=== PATIENT | male | born 1960 | race Caucasian/White ===

== ENCOUNTER 2016-09-28 13:56 | Emergency (ER) | payer MEDICARE ==
[~2016-09-28] VITALS: Ht 177.8 cm; Wt 95.0 kg
[2016-09-28 14:06] VITALS: BP 115/75; PULSE 80; RESP 20; O2SAT 98
[2016-09-28] MEDS ORDERED: SODIUM CHLOR 0.9% 1000 ML INJ 1,000 ML IV SCH (14:13)
--- NOTE | 2016-09-28 14:13 | PD ---
HPI Chief Complaint: Abdominal Pain Time Seen by Provider: 14:08 Travel History International Travel<30 days: No Contact w/Intl Traveler<30days: No Traveled to known affect area: No History of Present Illness HPI 55 year old male brought in by ambulance with sudden onset epigastric pain, nausea, vomiting since this morning. Patient reports a history of bilateral flank pain over the past several weeks which she was going to see his doctor for. He states he may have eaten some bad salmon 2 days ago which he feels may be causing some of his symptoms. Patient is a drinker daily and states he had about a cup and a half of liquor last evening. Patient woke up this morning with severe epigastric tenderness with pain through his back and into his chest. He describes his pain as a burning achy pain. Currently his pain is 10 out of 10. Patient denies urinary symptoms or diarrhea or constipation. He denies shortness of breath. Patient received 4 mg Zofran IV and a bolus which improved his nausea and vomiting. Twelve-lead in the ambulance showed several flipped T waves in the anterior leads. Patient is allergic to tramadol. PFSH Past Medical History Arthritis: Yes (L hip - genetic) Heart Rhythm Problems: No Cancer: Yes (BCC; ALSO "PRE-CANCER POLYPS -COLONOSCOPY") Cardiovascular Problems: Yes (Irregular rate) High Cholesterol: No Chest Pain: No Congestive Heart Failure: No Cerebrovascular Accident: No Diabetes: No Diminished Hearing: Yes (BILATERAL) Diverticulitis: Yes Endocrine: No Gastrointestinal Disorders: Yes (Diverticulosis / Spastic Colon) Genitourinary: No Hepatitis: No Hiatal Hernia: No Immune Disorder: No Musculoskeletal: No Neurologic: No Psychiatric: No Reproductive: No Respiratory: Yes (SLEEP APNEA CPAP) Immunizations Current: Yes Migraines: No Seizures: No Sleep Apnea: Yes (sleep apnea / narcolepsy) Thyroid Disease: No Past Surgical History Abdominal Surgery: No AICD: No Body Medical Devices: L HIP Cardiac Surgery: No Ear Surgery: No Endocrine Surgery: No Eye Surgery: No Genitourinary Surgery: No Gynecologic Surgery: No Joint Replacement: Yes (L HIP) Oral Surgery: Yes (tooth extraction) Pacemaker: No Thoracic Surgery: No Other Surgery: Yes ([facility] GLAND) Social History Alcohol Use: Yes (3-4 drinks per week) Tobacco Use: No Substance Use: No Allergies-Medications (Allergen,Severity, Reaction): Coded Allergies: Tramadol (Verified Adverse Reaction, Intermediate, Psychosis, 07/03/14) Reported Meds & Prescriptions Reported Meds & Active Scripts Active Omeprazole 40 Mg Cap 40 Mg PO DAILY Carafate (Sucralfate) 1 Gm Tab 1 Gm PO QID 14 Days On empty stomach Review of Systems Except as stated in HPI: all other systems reviewed are Neg General / Constitutional: No: Fever, Chills Eyes: No: Visual changes HENT: No: Headaches Cardiovascular: Positive: Chest Pain or Discomfort Respiratory: No: Shortness of Breath Gastrointestinal: Positive: Nausea, Vomiting, Abdominal Pain, Indigestion, Dysphagia, Loss of Appetite, No: Diarrhea, Changes in Bowel Habits Genitourinary: No: Urgency, Frequency, Dysuria Musculoskeletal: No: Pain Skin: No Rash Neurologic: No: Weakness Psychiatric: No: Depression Endocrine: No: Polydipsia Hematologic/Lymphatic: No: Easy Bruising Physical Exam Narrative GENERAL: Patient appears in moderate distress. He is writhing around with discomfort. SKIN: Warm and dry. Color. Normal turgor. Mild diaphoresis. HEAD: Atraumatic. Normocephalic. EYES: Pupils equal and round. No scleral icterus. No injection or drainage. ENT: No nasal bleeding or discharge. Mucous membranes pink and moist. Pharynx is clear. Airway is patent. NECK: Trachea midline. Supple nontender. CARDIOVASCULAR: Regular rate and rhythm. RESPIRATORY: No accessory muscle use. Clear to auscultation. Breath sounds equal bilaterally. GASTROINTESTINAL: Abdomen soft, moderate to severe epigastric tenderness, nondistended. No CVA tenderness. Bowel sounds present in all quadrants. Hepatic and splenic margins not palpable. MUSCULOSKELETAL: Extremities without clubbing, cyanosis, or edema. No obvious deformities. NEUROLOGICAL: Awake and alert. No obvious cranial nerve deficits. Motor grossly within normal limits. Five out of 5 muscle strength in the arms and legs. Normal speech. PSYCHIATRIC: Appropriate mood and affect; insight and judgment normal. Data Data Last Documented VS Vital Signs Date Time Temp Pulse Resp B/P Pulse Ox O2 Delivery O2 Flow Rate FiO2 09/28/16 14:41 99 09/28/16 14:06 80 20 115/75 Orders Complete Blood Count With Diff (09/28/16 14:13) Comprehensive Metabolic Panel (09/28/16 14:13) Lipase (09/28/16 14:13) Lactic Acid (09/28/16 14:13) Prothrombin Time / Inr (Pt) (09/28/16 14:13) Act Partial Throm Time (Ptt) (09/28/16 14:13) Urinalysis - C+S If Indicated (09/28/16 14:13) Ct Abd/Pel W Iv Contrast(Rout) (09/28/16 14:13) Iv Access Insert/Monitor (09/28/16 14:13) Ecg Monitoring (09/28/16 14:13) Oximetry (09/28/16 14:13) Morphine Inj (Morphine Inj) (09/28/16 14:15) Ondansetron Inj (Zofran Inj) (09/28/16 14:15) Pantoprazole Inj (Protonix Inj) (09/28/16 14:15) Sodium Chlor 0.9% 1000 Ml Inj (Ns 1000 M (09/28/16 14:13) Sodium Chloride 0.9% Flush (Ns Flush) (09/28/16 14:15) Electrocardiogram (09/28/16 14:13) Chest, Single Ap (09/28/16 14:13) Al-Mag Hy-Si 40-40-4 Mg/Ml Liq (Mag-Al P (09/28/16 14:15) Lidocaine 2% Viscous (Xylocaine 2% Visco (09/28/16 14:15) Ckmb (Isoenzyme) Profile (09/28/16 14:13) Troponin I (09/28/16 14:13) Aspirin Chew (Aspirin Chew) (09/28/16 14:15) CKMB (09/28/16 14:20) CKMB% (09/28/16 14:20) Iohexol 350 Inj (Omnipaque 350 Inj) (09/28/16 15:15) Labs Laboratory Tests Test 09/28/16 09/28/16 14:20 14:27 White Blood Count 11.1 TH/MM3 Red Blood Count 5.54 MIL/MM3 Hemoglobin 17.0 GM/DL Hematocrit 49.6 % Mean Corpuscular Volume 89.5 FL Mean Corpuscular Hemoglobin 30.6 PG Mean Corpuscular Hemoglobin 34.2 % Concent Red Cell Distribution Width 13.6 % Platelet Count 233 TH/MM3 Mean Platelet Volume 8.3 FL Neutrophils (%) (Auto) 80.1 % Lymphocytes (%) (Auto) 15.0 % Monocytes (%) (Auto) 4.2 % Eosinophils (%) (Auto) 0.4 % Basophils (%) (Auto) 0.3 % Neutrophils # (Auto) 8.9 TH/MM3 Lymphocytes # (Auto) 1.7 TH/MM3 Monocytes # (Auto) 0.5 TH/MM3 Eosinophils # (Auto) 0.0 TH/MM3 Basophils # (Auto) 0.0 TH/MM3 CBC Comment DIFF FINAL Differential Comment Prothrombin Time 10.0 SEC Prothromb Time International 0.9 RATIO Ratio Activated Partial 25.5 SEC Thromboplast Time Sodium Level 139 MEQ/L Potassium Level 3.8 MEQ/L Chloride Level 105 MEQ/L Carbon Dioxide Level 25.8 MEQ/L Anion Gap 8 MEQ/L Blood Urea Nitrogen 22 MG/DL Creatinine 1.20 MG/DL Estimat Glomerular Filtration 63 ML/MIN Rate Random Glucose 105 MG/DL Calcium Level 9.0 MG/DL Total Bilirubin 0.6 MG/DL Aspartate Amino Transf 25 U/L (AST/SGOT) Alanine Aminotransferase 53 U/L (ALT/SGPT) Alkaline Phosphatase 71 U/L Total Creatine Kinase 155 U/L Creatine Kinase MB 5.1 NG/ML Troponin I 0.03 NG/ML Total Protein 7.6 GM/DL Albumin 3.9 GM/DL Lipase 284 U/L Lactic Acid Level 1.7 mmol/L MDM Medical Decision Making Medical Screen Exam Complete: Yes Emergency Medical Condition: Yes Medical Record Reviewed: Yes Differential Diagnosis Gastritis. Esophagitis. Pancreatitis. Gallbladder disease. Cardiac syndrome. Narrative Course Patient is uncomfortable but appears medically stable at time of exam. EKG is performed. This shows sinus rhythm with occasional SVT IV access is obtained patient is given 4 mg Zofran IV as well as 4 mg morphine IV. Patient is given pantoprazole 40 mg IV as well as a GI cocktail by mouth. Labs ordered including CBC, CMP, lipase, urinalysis, and cardiac panel. Patient is given 324 mg aspirin by mouth. CBC is unremarkable. CMP is unremarkable with a troponin of 0.03. Lipase is normal. CT of the abdomen is obtained with IV contrast showing severe gastritis, without significant findings in the pancreas or liver per radiologist. Patient is much improved with pantoprazole and GI cocktail as well as Zofran and morphine as above. Patient was reviewed with Dr. Espinosa. Patient is felt to be stable for discharge home with diagnosis of severe gastritis. Patient is treated with omeprazole 40 mg daily for the next 30 days Patient also given Carafate 1 g 4 times a day 30 minutes prior to meals and at bedtime. Patient is to have very bland diet and avoid acidic foods or alcohol until seen by his primary care physician. Patient is to call his primary care physician for follow-up. Patient can return to emergency department if worsening symptoms develop as discussed per Diagnosis Primary Impression: Gastritis Qualified Code: K29.00 - Acute gastritis without hemorrhage, unspecified gastritis type Referrals: Resume Specialist Primary Care Physician Patient Instructions: Diet for Stomach Ulcers and Gastritis (ED), Gastritis (ED ), General Instructions Additional Instructions: Patient is felt to be stable for discharge home with diagnosis of severe gastritis. Patient is treated with omeprazole 40 mg daily for the next 30 days Patient also given Carafate 1 g 4 times a day 30 minutes prior to meals and at bedtime. Patient is to have very bland diet and avoid acidic foods or alcohol until seen by his primary care physician. Patient is to call his primary care physician for follow-up. Patient can return to emergency department if worsening symptoms develop as discussed per Med/Other Pt SpecificInfo: Prescription(s) given Scripts Omeprazole 40 Mg Cap40 Mg PO DAILY #30 CAP Ref 0 Prov:Rosalba Espinosa DO 09/28/16 Sucralfate (Carafate)1 Gm Tab1 Gm PO QID 14 Days Ref 0 On empty stomach Prov:Rosalba Espinosa DO 09/28/16 Disposition: 01 DISCHARGE HOME Condition: Stable Keith Bernard Sep 28, 2016 14:13
[2016-09-28] MEDS ORDERED: ALUMINUM/MAGNESIUM/SIMETH 30 ML CUP PO ONE (14:15)
[2016-09-28] MEDS ORDERED: ONDANSETRON HCL 4 MG/2 ML VIAL IVP ONE (14:15)
[2016-09-28] MEDS ORDERED: LIDOCAINE VISCOUS 2% SOLN 15 ML UDC PO ONE (14:15)
[2016-09-28] MEDS ORDERED: PANTOPRAZOLE SODIUM 40 MG VIAL IVP ONE (14:15)
[2016-09-28] MEDS ORDERED: ASPIRIN 81 MG CHEW TAB PO ONE (14:15)
[2016-09-28] MEDS ORDERED: SODIUM CHLORIDE 0.9% FLUSH 10 ML FLUSH IV FLUSH PRN (14:15)
[2016-09-28] MEDS ORDERED: MORPHINE SULFATE 4 MG/ML INJ IV PUSH ONE (14:15)
[2016-09-28 14:33] LABS: AUTOMATED NEUTROPHIL # 8.9 TH/MM3 (1.8-7.7); BASOPHIL % 0.3 % (0.0-2.0); EOSINOPHIL % 0.4 % (0.0-4.0); HEMATOCRIT 49.6 % (39.0-51.0); HEMO FLAGS DIFF FINAL; LYMPHOCYTE # 1.7 TH/MM3 (1.0-4.8); MEAN CELL VOLUME 89.5 FL (80.0-100.0); MEAN CORPUSCULAR HEMOGLOBIN 30.6 PG (27.0-34.0); MEAN CORPUSCULAR HGB CONC 34.2 % (32.0-36.0); MONO % 4.2 % (0.0-8.0); NEUT % 80.1 % (16.0-70.0); PLATELET COUNT 233 TH/MM3 (150-450); RED BLOOD COUNT 5.54 MIL/MM3 (4.50-5.90); RED CELL DISTRIBUTION WIDTH 13.6 % (11.6-17.2); WHITE BLOOD COUNT 11.1 TH/MM3 (4.0-11.0)
[2016-09-28 14:41] VITALS: O2SAT 99
[2016-09-28 14:41] LABS: APTT (PATIENT) 25.5 SEC (24.3-30.1); INTERNATIONAL NORMALIZED RATIO 0.9 RATIO
[2016-09-28 14:54] LABS: ALT (GPT) 53 U/L (12-78); ANION GAP 8 MEQ/L (5-15); BICARBONATE 25.8 MEQ/L (21.0-32.0); BLOOD UREA NITROGEN 22 MG/DL (7-18); CHLORIDE 105 MEQ/L (98-107); GLOMERULAR FILTRATION RATE 63 ML/MIN (>89); POTASSIUM 3.8 MEQ/L (3.5-5.1); SODIUM (NA) 139 MEQ/L (136-145)
[2016-09-28 14:59] LABS: ALKALINE PHOSPHATASE 71 U/L (45-117); AST (GOT) 25 U/L (15-37); CREATINE KINASE 155 U/L (39-308); TOTAL BILIRUBIN ADULT 0.6 MG/DL (0.2-1.0)
[2016-09-28 15:12] LABS: CKMB 5.1 NG/ML (0.5-3.6)
[2016-09-28] MEDS ORDERED: IOHEXOL 350 MG/ML 10 ML VIAL (for RAD DIAG) IV ONE (15:15)
--- NOTE | 2016-09-28 15:33 | RADRPT ---
EXAM DATE/TIME: 09/28/2016 15:12 [facility] COMPARISON: CT ABDOMEN & PELVIS W CONTRAST, May 17, 2014, 8:22. INDICATIONS : Abdominal pain with vomiting. Chest pain. IV CONTRAST: 100 cc Omnipaque 350 (iohexol) IV ORAL CONTRAST: No oral contrast ingested. RADIATION DOSE: 16.74 CTDIvol (mGy) MEDICAL HISTORY : Diverticulosis SURGICAL HISTORY : Left hip replacement. ENCOUNTER: Initial ACUITY: 1 day PAIN SCALE: 8/10 LOCATION: Abdominal TECHNIQUE: Volumetric scanning of the abdomen and pelvis was performed. Using automated exposure control and adjustment of the mA and/or kV according to patient size, radiation dose was kept as low as reasonably achievable to obtain optimal diagnostic quality images. DICOM format image data is av ailable electronically for review and comparison. FINDINGS: The lung bases are clear. There is induration in the mesentery around the stomach with marked thickening of the gastric wall suggesting significant gastritis. There is no evidence for pa ncreatitis. Diverticula are present in the sigmoid colon which is associated with part of this. Pancreas and spleen are unremarkable. There is symmetrical renal function. Pelvic contents are unremarkable. CONCLUSION: Abnormal upper abdomen with induration in the mesentery surrounding the stomach with marked thickening of the gastric wall suggesting significant gastritis. Correlation is suggested. Rj Merida MD FACR on September 28, 2016 at 15:22 Board Certified Radiologist. This report was verified electronically.
[2016-09-28] MEDS ORDERED: OMEP40CA2 PO (16:00)
[2016-09-28] MEDS ORDERED: CARA1TAB6 PO (16:00)
--- NOTE | 2016-09-28 16:32 | RADRPT ---
EXAM DATE/TIME: 09/28/2016 15:26 [facility] COMPARISON: CHEST PA & LAT, June 21, 2014, 13:34. INDICATIONS : Lower chest pain and upper abdomen pain evaluate for free air. MEDICAL HISTORY : Diverticulosis SURGICAL HISTORY : Left hip replacement. ENCOUNTER: Initial ACUITY: 1 day PAIN SCORE: 6/10 LOCATION: Bilateral chest FINDINGS: The lungs are clear without infiltrate, nodule, or mass. There is no appreciable pleural effusion fo r technique. Heart and mediastinum are unremarkable. There is prominence of the perivascular marking s with crowding of the bronchovascular markings may be due to expiratory state of this radiograph, ho wever slight interstitial process is not excluded. CONCLUSION: No acute cardiopulmonary disease. Miguel Angel Nazario MD on September 28, 2016 at 16:31 Board Certified Radiologist. This report was verified electronically.
[2016-09-28 16:50] VITALS: BP 142/75; PULSE 78; RESP 20
--- NOTE | 2016-09-29 19:15 | EKG ---
Date Performed: 09/28/2016 Time Performed: 14:25:24 PTAGE: 55 years EKG: Sinus rhythm WITH OCCASIONAL SUPRAVENTRICULAR INCOMPLETE RIGHT BUNDLE BRANCH BLOCK NONSPECIFIC T-WAVE CHANGES ANT EROLATERALLY, ISCHEMIA IS ONE CONSIDERATION ABNORMAL ECG Compared to PREVIOUS TRACING , T-wave changes persist but are somewhat less prominent anterolaterally in V4-V6. Clinical correlation is recommended. PREVIOUS TRACIN06/21/2014 09.11 DOCTOR: Moise Walden Interpretating Date/Time 09/29/2016 19:14:28
== END 2016-09-28 16:51 | disposition home or self-care (01) ==
LOC: NEPE 13:56
DX: K29.00 Acute gastritis without bleeding (principal); R94.31 Abnormal electrocardiogram [ECG] [EKG]; G47.30 Sleep apnea, unspecified; H91.93 Unspecified hearing loss, bilateral; Z87.39 Personal history of other diseases of the musculoskeletal system and connective tissue; Z86.79 Personal history of other diseases of the circulatory system; Z87.19 Personal history of other diseases of the digestive system
CPT/HCPCS: 71010; 74177; 80053; 82550; 82552; 83605; 83690; 84484; 85025; 85610; 85730; 93005; 96361; 96374; 96375; 99285; C9113; J2270; J2405; J7030; Q9967